=== PATIENT | male | born 1995 | race Native Hawaiian/Other Pacific Islander ===

== ENCOUNTER 2017-01-05 21:00 | Emergency (ER) | payer BC ==
[~2017-01-05] VITALS: Ht 185.4 cm; Wt 120.2 kg
== END 2017-01-05 22:18 | disposition home or self-care (01) ==
LOC: ED 21:00
DX: J02.9 Acute pharyngitis, unspecified (principal)
CPT/HCPCS: 87880; 96372; 99283; J0696; J1885

== ENCOUNTER 2017-01-08 08:58 | Emergency (ER) | payer BC ==
[~2017-01-08] VITALS: Ht 185.4 cm; Wt 120.2 kg
[2017-01-08 09:43] LABS: PLATELET COUNT 264 K/uL (142-355)
== END 2017-01-08 10:00 | disposition home or self-care (01) ==
LOC: ED 08:58
DX: J02.0 Streptococcal pharyngitis (principal)
CPT/HCPCS: 36415; 85027; 99282